=== PATIENT | female | born 1975 | race American Indian/Alaskan Native ===

== ENCOUNTER → 2020-05-01 13:39 | Outpatient (CLI) | payer OTHER, SELFPAY ==
--- NOTE | 2020-05-01 | DI.US.S_ITS ---
PROCEDURE: US PELVIC COMPLETE INDICATIONS: PELVIC PAIN TECHNIQUE: Real-time scanning was performed of the pelvic organs, with image documentation. Additional endovaginal scanning was necessary due to incomplete visualization of the adnexal and endometrial structures by transabdominal scanning. COMPARISON: None. FINDINGS: Transabdominal scanning: Limited scanning through the kidneys shows no hydronephrosis. No pathologic free abdominal or pelvic fluid. Endovaginal scanning: Uterus: Uterus is normal in size at 8.5 x 5.9 x 6.3 cm. The endometrium measures 9.8 mm in combined thickness. There is a 2.7 x 2.9 x 2.6 cm left anterior intramural uterine fibroid. There is a 2.5 x 2.5 x 2.6 cm right anterior intramural fibroid. There is a 1.6 x 1.5 x 2.2 cm mid subserosal uterine fibroid. Ovaries: Right ovary measures 3.3 x 1.4 x 1.4 cm. Right ovary is sonographically normal. Left ovary measures 3.7 x 2.9 x 3.1 cm. There is a 2.2 x 1.8 x 2.9 cm complex left adnexal cyst. IMPRESSION: 1. Uterine fibroids. 2. 2.2 x 1.8 x 2.9 cm complex left adnexal cyst which may represent progressing follicle, however lesion has nonspecific imaging characteristics and followup pelvic ultrasound in 6-12 weeks is recommended to ensure resolution of the study and to exclude early neoplastic process. Dictated by: Jazlyn Chung MD, PhD on 05/01/2020 at 15:20 Approved by: Jazlyn Chung MD, PhD on 05/01/2020 at 15:41
== END ==
PROVIDERS: PCP Family Medicine; Referring Provider Family Medicine; Visit Provider Family Medicine
DX: R10.2 Pelvic and perineal pain (principal); D25.1 Intramural leiomyoma of uterus; D25.2 Subserosal leiomyoma of uterus; N83.292 Other ovarian cyst, left side
CPT/HCPCS: 76830; 76856

== ENCOUNTER → 2020-05-02 12:54 | Outpatient (CLI) | payer OTHER, SELFPAY ==
--- NOTE | 2020-05-02 13:16 | DI.CT.S_ITS ---
PROCEDURE: CT ABDOMEN PELVIS W CON INDICATIONS: abdominal and pelvic pain TECHNIQUE: After the administration of oral and intravenous contrast, 5 mm thick sections acquired from the diaphragms to the symphysis. 5 mm thick coronal and sagittal reformats were performed. For radiation dose reduction, the following was used: automated exposure control, adjustment of mA and/or kV according to patient size. COMPARISON: None. FINDINGS: Image quality: Diagnostic. ABDOMEN: Lung bases: Lung bases are clear. Heart size is normal. Solid organs: Liver is normal in size and enhancement. Gallbladder is decompressed and demonstrates wall thickening. Biliary system is non-dilated. Pancreas enhances normally. Spleen is normal in size and enhancement. No adrenal nodules. Kidneys are normal in size and enhancement, without hydronephrosis. There is a nonobstructing inferior right renal calculus. Peritoneum and bowel: Postoperative changes of the stomach are present suggesting prior gastric bypass. Proximal distal small bowel anastomosis is evident. There is a focally prominent small bowel loop identified just beyond the proximal small bowel anastomosis that measures up to 3.7 cm. Otherwise, the remainder of the small bowel loops are nondilated. Minimal distal colonic diverticulosis appears to be present. However, there is no evidence to suggest acute diverticulitis. Appendix is not definitely identified. Nodes and vessels: No retroperitoneal or mesenteric adenopathy. Aorta and inferior vena cava are normal in caliber. Bones: No acute fracture or suspicious osseous lesion is identified. There are mild to moderate degenerative changes of the imaged spine. PELVIS: Genitourinary: Bladder wall thickness is normal. The uterus and ovaries are not adequately evaluated on CT. However, the uterus is prominent in size and appears to contain multiple uterine fibroids. The left ovary may be mildly enlarged related to complex ovarian cyst. The right ovary is not enlarged. Tubal ligation clips are present. Miscellaneous: No inguinal hernias or adenopathy. Bones: No suspicious bony lesions. No acute pelvic fractures are evident. There mild degenerative changes of the pelvic joints. IMPRESSION: 1. No definite acute abnormality within the abdomen or pelvis. 2. Prior gastric bypass. Focally dilated small bowel loop in the proximal small bowel anastomosis probably is within normal limits. There is no convincing evidence of a bowel obstruction. 3. Nonobstructing inferior right renal calculus. No hydronephrosis or ureteral calculi. 4. Wall prominence of the gallbladder probably is exaggerated by incomplete distention. Please correlate clinically to exclude the possibility of cholecystitis. Dictated by: Sabas Polk M.D. on 05/02/2020 at 13:06 Approved by: Sabas Polk M.D. on 05/02/2020 at 13:11
== END ==
PROVIDERS: PCP Family Medicine; Referring Provider Family Medicine; Visit Provider Family Medicine
DX: R10.2 Pelvic and perineal pain (principal); R10.9 Unspecified abdominal pain; Z98.84 Bariatric surgery status; N20.0 Calculus of kidney
CPT/HCPCS: 74177; Q9967

== ENCOUNTER → 2020-08-07 09:51 | Outpatient (CLI) | payer OTHER, SELFPAY ==
[2020-08-09 17:23] LABS: COVID19 Sendout Not Detected (Not Detect)
== END ==
PROVIDERS: PCP Family Medicine; Visit Provider Nurse Practitioner
DX: Z11.59 Encounter for screening for other viral diseases (principal)
CPT/HCPCS: 87635

== ENCOUNTER 2020-08-10 08:18 | Day surgery (SDC) | payer OTHER, SELFPAY ==
[2020-08-07 12:18] VITALS: BMI 33.5
[2020-08-10] VITALS (16 sets, daily range): BP systolic 124–167; BP diastolic 68–82; PULSE 49–82; RESP 10–159; TEMP 36.2–37.1; O2SAT 97–100; BMI 32.2
--- NOTE | 2020-08-10 | PATH_ITS ---
[facility] Accession Number: [id number] . 01 Material submitted: . UTERUS/FALLOPIAN TUBES - UTERUS AND BILATERAL FALLOPIAN TUBES . 01 Diagnosis: Uterus and Bilatral Fallopian Tubes, Hysterectomy and Bilateral Salpingectomy: Mixed proliferative and secretory endometrium; no atypical hyperplasia. Benign leiomyomata. Complete cross-sections of bilateral fallopian tubes with benign paratubal cysts. No malignancy. [facility] 08/14/2020 1237 Local . 01 Electronically signed: . Marlene Loyola MD, Pathologist NPI- [id number] . 01 Gross description: . Received in formalin, labeled uterus and bilateral fallopian tubes, and consists of a 115-gram fragmented uterus measuring 10.0 x 9.5 x 4.0 cm in aggregate. The serosa is reyna-pink and smooth. An ectocervix is not identified. The endometrium is reyna-pink hemorrhagic and measures 0.1 cm in thickness. The myometrium is reyna-pink and trabeculated. There are multiple reyna-white whorled leiomyomata fragments, the largest measuring 3.0 cm. No areas of hemorrhage, necrosis, or cystic degeneration are identified. There are two previously ligated fallopian tubes measuring 5.0 cm in length by 0.3 cm in diameter and 6.6 cm in length by 0.5 cm in diameter. The serosa is reyna-pink to pink-purple and smooth with fibrinous adhesions and multiple paratubal cysts ranging from 0.1 to 1.2 cm. Sectioning reveals a pinpoint to stellate lumen measuring up 0.2 cm in diameter. Vector Control Specialist sections are submitted. . A1-A2: endomyometrium, serosa and leiomyomata. A3-A5: patient access representative leiomyomata. A6-A7: patient access representative fallopian tubes with bisected fimbria and central cross-sections. ([id number]) /MRV 08/11/2020 1343 Local . 01 Pathologist provided ICD-10: N92.0, D25.0, D25.1 . 01 CPT . 663811 [facility]formed [facility]: [facility] [address] [place] [address], [place], [place] [id number] MD Shane Allen MD Phone: [phone]
[2020-08-10] MEDS: ACETAMINOPHEN 325 MG TABLET 975 MG PO (08:48)
[2020-08-10] MEDS: LACTATED RINGERS 1,000 ML 100 ML IV ×3 (08:49→12:28)
--- NOTE | 2020-08-10 09:00 | PM.PREOP ---
Pre-operative Note COVID-19 COVID-19 status: Negative Result date/Date tested (Pos, Neg/Pending): 08/07/20 Interval Note History & Physical reviewed/Exam performed by Physician: Yes Changes to H&P: No
[2020-08-10] MEDS: CEFAZOLIN 2 GM/100 ML FROZ.PIGGY IV (09:22)
--- NOTE | 2020-08-10 09:50 | SUR.OPER ---
Lithotomy on padded OR bed. [place] Pad Positioner under torso. Head on pillow, arms padded and tucked at sides. Legs secured in padded yellow fins stirrups.
[2020-08-10] MEDS: BUPIVACAINE 0.5% W/ EPI (PF) 30 ML VIAL INJ (09:59)
[2020-08-10] MEDS: ROPIVACAINE 0.2% PF 2 MG/ML 10ML AMP 20 ML INJ (10:01)
--- NOTE | 2020-08-10 11:02 | PM.OP.1 ---
Operative Date/Time/Diagnoses Date of procedure: 08/10/20 Time of procedure: 11:02 Pre-op diagnosis: Menorrhagia Post-op diagnosis: same Procedure & Clinicians Procedure: Laparoscopic supracervical hysterectomy with bilateral salpingectomy Same procedure as scheduled: Yes Indications: Menorrhagia with fibroids on ultrasound Surgeon: Ana Cristina Chilel Operations Coordinator: Aliyah Reyes Click Yes if Unassisted: No Anesthesia Type: General Operative Notes Findings: Normal ovaries, bilateral Filshie clip tubal ligation, fibroid uterus. Minimal adhesions in the pelvis, normal liver edge, normal appearing appendix and bowel surface. Closure Type: primary Specimen(s): other (Uterus above the level of the bladder and bilateral fallopian tubes) Estimated Blood Loss (mL): 50 Blood products transfused: none Procedure in detail: Patient is brought to the operating room where she underwent general anesthesia and placed in low yellowfin stirrups. She was prepped and draped in the usual sterile fashion. A check list was reviewed with the staff in the room prior to beginning of the case. Patient had pulsatile stockings in place and functional. 2 g of Ancef were in prior to beginning of the case.. A Castro catheter was placed. A single-tooth tenaculum was placed on the anterior lip of the cervix and the cervix dilated to a #6 Hegar dilator. The uterine manipulator was placed through the cervix into the uterus with the balloon inflated with 3 mL of air. The area of the umbilical incision and the 5 mm right and left lower quadrant incisions were injected with Marcaine. An incision was made with scalpel. There was some difficulty with the excessive tissue placing the varies needle so the umbilical incision was widened and carried down to the fascial layer which was held to allow the varies needle to be placed. The verries needle was placed into the abdomen and confirmed in the appropriate place with withdrawal on a syringe and then free flow of fluid down through the needle. The abdomen was insufflated with CO2. The needle was removed and a 5 mm trocar placed without difficulty. There did not appear to be any damage is placement of the trocar. The right and left lower quadrant incisions were made with the scalpel and the trochars placed without damage to internal structures. The PK forceps were used to cauterize along the mesosalpinx followed by the round ligaments on both sides. The utero-ovarian ligaments were cauterized and cut Sequential bites were taken down the broad ligaments. The uterine arteries were cauterized. An incision was made above the level bladder pushing the bladder away from the cervix. The RHETT loop was placed around the uterus and the uterus was amputated above the level of the bladder. Bleeding was controlled with the PK forceps. The PK forceps were used to cauterize in the endocervical canal. A supracervical incision was made and an 12 mm port placed. A 12 mm Endo Catch bag was placed in the abdomen. The uterus and tubes were placed in the bag and brought up through the suprapubic port site. The Curtis O was placed. The uterus was hand morselized. The abdomen was reinsufflated and adequate hemostasis was noted. Ropivacaine was placed over the cervical stump. The trochars were removed and the CO2 allowed escape from the abdomen. The fascia layer of the suprapubic site was repaired with 0 Polysorb suture. Skin was closed with 4-0 Monocryl suture at the suprapubic site and the other 3 sites. The patient went to recovery room in good condition. Counts of instruments and sponges were correct. Complications: none Post-operative Condition: stable Disposition: Acute Care (Observation) Plan for aftercare: Routine post laparoscopic hysterectomy
[2020-08-10] MEDS: KETOROLAC 30 MG/ML VIAL IV (11:45)
[2020-08-10] MEDS: OXYCODONE/ACETAMINOPHEN 5/325 TABLET 2 TAB PO ×3 (13:11→22:02)
[2020-08-10] MEDS: ONDANSETRON 4 MG/2 ML INJ IV ×2 (13:13→18:52)
--- NOTE | 2020-08-10 13:44 | PC.ADMIT ---
[email or web address] [facility] Admission Note: Safe hand off from PACU, patient arrived via portable bed to the floor at 1215. Patient having abdominal discomfort and rates pain 8/10. 30 mg toradol given w/ little relief. Patient given 10 mg percocet and 4mg Zofran given. Patient was has small ammt. of nausea after eating lunch. at 13:15, and now is comfortably resting. Patient has 4 lap sites w/ band aids, clean/dry and intact. Bowel tones active in all 4 quadrants. CMS is intact, no complaints of numbness or tingling. Patient educated about the use of call light, it's within reach, bed alarm is active, bed is low and locked. The patient,Kiah Montalvo,44 y/o, was given written information regarding hospital policies, unit procedures and contact persons. Patient's smoking status: Former smoker. Vital Signs - 8 hr 08/10/20 08:36 08/10/20 10:58 08/10/20 11:03 Temperature 97.7 F 97.2 F L Pulse Rate 72 50 L 49 L Respiratory Rate 16 14 14 Blood Pressure 134/68 157/70 H 162/68 H Pulse Oximetry 99 98 98 08/10/20 11:08 08/10/20 11:13 08/10/20 11:17 Temperature 97.8 F Pulse Rate 57 L 59 L 62 Respiratory Rate 159 H 10 L 15 Blood Pressure 160/73 H 159/74 H 145/72 H Pulse Oximetry 98 98 99 08/10/20 11:25 08/10/20 11:55 Temperature 97.1 F L 97.4 F L Pulse Rate 63 54 L Respiratory Rate 15 15 Blood Pressure 160/76 H 162/77 H Pulse Oximetry 100 100
[2020-08-10] MEDS: DOCUSATE 250 MG CAPSULE PO (22:03)
[2020-08-11] MEDS: ONDANSETRON 4 MG/2 ML INJ IV (00:42)
[2020-08-11] MEDS: OXYCODONE/ACETAMINOPHEN 5/325 TABLET 2 TAB PO ×3 (00:46→11:10)
--- NOTE | 2020-08-11 04:59 | PC.NURSE ---
Addendum entered by Melissa Murguia R.N. 08/11/20 06:15: Patient up to restroom, voiding, passing flatus. Reports pain 05/03. PRN Percocet given, patient requests only 1 tab. Will monitor for N/V. Patient denies further needs at this time. Call light in reach, belongings in reach. Original Note: Assumed care of patient at 0300. Patient is resting with eyes closed, breathing unlabored. Saline locked. Bed alarm on. Belongins in reach. Will continue to monitor.
[2020-08-11 05:00] VITALS: BP 125/68; PULSE 75; RESP 18; TEMP 37.5; O2SAT 100
--- NOTE | 2020-08-11 07:42 | PM.DS.1 ---
History of Present Illness History of Present Illness Date Patient Seen: 08/11/20 Time Patient Seen: 07:43 Chief complaint: OPB Narrative: Patient underwent a laparoscopic supracervical hysterectomy with bilateral salpingectomies on 08/10/2020 for menorrhagia Discharge Providers Provider Discharge Date: 08/11/20 Primary care physician: Natalia Carolina MD Discharge provider: Ana Cristina Chilel MD Summary Hospital Course Discharge Diagnosis: Menorrhagia status post laparoscopic supracervical hysterectomy Hospital Course: Patient underwent a laparoscopic supracervical hysterectomy with bilateral salpingectomies for menorrhagia on 08/10/2020. Patient is ambulatory, tolerating regular diet, minimal nausea, passing gas, urinating well. Pain is controlled. Status at Discharge Cognitive/behavioral status at discharge: oriented Functional status at discharge: independent ambulation Overall status at discharge: patient is progressing back to baseline Time Spent with Patient Time spent: Less than 30 minutes Exam Vital Signs (past 8 hours): - 08/11/20 05:00 Temperature 99.5 F Pulse Rate 75 Respiratory Rate 18 Blood Pressure 125/68 Pulse Oximetry 100 Oxygen Delivery Method Room Air Oxygen Flow Rate 0 Narrative Exam Narrative: Abdomen is soft, with minimal tenderness. Incisions are clean, dry, intact. Extremities without edema and nontender. Discharge Assessment & Plan Assessment and Plan Assessment: Postop laparoscopic supracervical hysterectomy doing well Plan of Treatment: Discharge home to be followed up in 1 week routine precautions reviewed with the patient. Patient already has her pain medicine prescription but is requesting nausea medicines sent to her pharmacy. Discharge Plan Discharge Plan Patient Disposition: Home Discharge Med Rec/Prescriptions Prescriptions: New ondansetron 4 mg tablet,disintegrating 4 mg PO Q6H PRN (Reason: nausea and vomiting) Qty: 10 RF: 0 Continued escitalopram oxalate [Lexapro] 20 mg tablet 20 mg PO DAILY RF: 0 cyanocobalamin (vitamin B-12) 1,000 mcg/mL solution 100 mcg IM QMONTH RF: 0 oxycodone-acetaminophen [Percocet] 5-325 mg tablet 2 tab PO Q4-6H PRN (Reason: pain) Qty: 30 RF: 0 ferrous sulfate [Iron (ferrous sulfate)] 325 mg (65 mg iron) Tablet 65 mg PO DAILY RF: 0 Follow up/Referrals: Ana Cristina Chilel MD [Physician] - 1 Week (postop exam) Discharge Orders: Discharge (Order); Ordered 08/11/20 Ordered By: Ana Cristina Chilel Provider Discharge Instructions Diet: Regular Activity: Nothing in vagina for 1 week Skin/Wound/Dressing Care Report to your healthcare provider any signs of infection, such as:: chills, fever, increased pain and unusual redness Visit Report/Discharge Packet Instructions: DI for Hysterectomy, DI for Laparoscopy Discharge Data Primary Care Provider: Natalia Carolina Attending Provider: Ana Cristina Chilel Quality VTE Deep Vein Thrombosis/Pulmonary Embolism Present on Admission: No
[2020-08-11 08:12] VITALS: BP 140/80; PULSE 59; RESP 16; TEMP 37.1; O2SAT 99
[2020-08-11] MEDS: DOCUSATE 250 MG CAPSULE PO (08:32)
[2020-08-11] MEDS: ESCITALOPRAM 10 MG TABLET 20 MG PO (08:32)
--- NOTE | 2020-08-11 10:50 | PC.NURSE ---
Assess- Patient is going to discharge at 1100am. She has 3 bandaide lap sites that are cdi, and then 1 lower incision below navel that is open to air with steri strips present with some bloody drainage that is dried. She has no bleeding from vagina and is independent in the room. Denies pain at this time.
== END 2020-08-11 11:54 | disposition home or self-care (01) ==
LOC: OR 08:19 → AC 08:19
PROVIDERS: PCP Family Medicine; Referring Provider Specialist; Visit Provider Specialist
PROC: 0UT94ZL Resection of Uterus, Supracervical, Percutaneous Endoscopic Approach (ICD-10-PCS; CPT 58542; principal; 2020-08-10 09:45)
DX: D25.0 Submucous leiomyoma of uterus (principal); N73.6 Female pelvic peritoneal adhesions (postinfective); N83.8 Other noninflammatory disorders of ovary, fallopian tube and broad ligament
CPT/HCPCS: 58542; J0690; J1100; J1885; J2250; J2405; J2704; J2795; J3010

== ENCOUNTER → 2021-05-02 10:47 | Outpatient (CLI) | payer OTHER, SELFPAY ==
[2020-08-10 11:54] VITALS: BMI 32.2
--- NOTE | 2021-05-02 | DI.RAD.S_ITS ---
PROCEDURE: XR WRIST RT MIN 3V INDICATIONS: RIGHT HAND /WRIST NUMBNESS TECHNIQUE: For views of the wrist were acquired. COMPARISON: None. FINDINGS: Bones: No acute fractures or dislocations. No suspicious bony lesions. There is an abnormal morphology of the distal ulna, where a either a congenital variant large assess Ree ossicle is present versus nonunion fracture from the past with hyperostosis. The structure superimposed on the expected position of the ulnar-styloid process is approximately 1.8 cm transverse and 1.0 cm longitudinal.. Scaphoid view: No trauma to the scaphoid is found. Soft tissues: No suspicious soft tissue calcifications. IMPRESSION: Unusual osseous structure superimposed on the expected position of the ulnar-styloid process. As discussed above this could represent a congenital morphologic anomaly or even possibly a result of prior trauma with nonunion. No definite acute disease is found. Dictated by: Tay Dias M.D. on 05/02/2021 at 11:20 Approved by: Tay Dias M.D. on 05/02/2021 at 11:22
== END ==
LOC: RAD 10:49
PROVIDERS: PCP Family Medicine; Referring Provider Family Medicine; Visit Provider Family Medicine
DX: R20.0 Anesthesia of skin (principal)
CPT/HCPCS: 73110

== ENCOUNTER → 2021-05-10 12:00 | Outpatient (CLI) | payer OTHER, SELFPAY ==
[2020-08-10 11:54] VITALS: BMI 32.2
== END ==
LOC: PHYS 12:01
PROVIDERS: PCP Family Medicine; Referring Provider Family Medicine; Visit Provider Family Medicine
DX: G56.00 Carpal tunnel syndrome, unspecified upper limb (principal)
CPT/HCPCS: 95886; 95912

== ENCOUNTER → 2021-06-07 11:47 | Outpatient (CLI) | payer OTHER, SELFPAY ==
[2020-08-10 11:54] VITALS: BMI 32.2
--- NOTE | 2021-06-07 11:48 | DI.US.S_ITS ---
PROCEDURE: US THYROID INDICATIONS: HISTORY RIGHT THYROIDECTOMY; POSSIBLE LEFT THYROID NODULES TECHNIQUE: Real-time scanning was performed of the thyroid gland, with image documentation. COMPARISON: None. FINDINGS: Right: Surgically absent. No discrete nodule or mass lesion demonstrated within the right thyroid bed. Left: The left lobe measures 5.4 x 1.5 x 2.2 cm and appears mildly heterogeneous. Nodule number: 1 Location: Inferior left lobe. Size: 1.0 x 0.8 x 1.5 cm. Composition: Solid Echogenicity: Isoechoic Shape: wider than tall. Margins: Smooth Echogenic foci: None. Total points: 3 ACR TI-RADS category: 3-mildly suspicious. Nodule number: 2 Location: Inferior to mid left lobe. Size: 0.7 x 0.3 x 0.4 cm. Composition: Cystic Echogenicity: Markedly hypoechoic Shape: wider than tall. Margins: Smooth Echogenic foci: Punctate small foci along the margins. Total points: 3 ACR TI-RADS category: 3-mildly suspicious. IMPRESSION: 1. Small mildly suspicious nodules in the inferior left lobe. Further evaluation may be obtained in 12 months to demonstrate stability if clinically indicated. 2. Surgical absence of the right lobe without a discrete soft tissue nodule or mass in the right thyroid lobe. ACR TI-RADS definitions and recommendations: TI-RADS 1 (benign): 0 points. FNA not needed. TI-RADS 2 (not suspicious): 2 points. FNA not needed. TI-RADS 3 (mildly suspicious): 3 points. * FNA if 2.5 cm or larger, follow up if 1.5 cm or larger (at 1, 3, and 5 years). TI-RADS 4 (moderately suspicious): 4-6 points. * FNA if 1.5 cm or larger, follow up if 1 cm or larger (at 1, 2, 3, and 5 years). TI-RADS 5 (highly suspicious): 7 points or more. * FNA if 1 cm or larger, follow up if 0.5 cm or larger (every year for 5 years). Dictated by: Shane Portillo M.D. on 06/07/2021 at 17:08 Approved by: Shane Portillo M.D. on 06/07/2021 at 17:13
== END ==
PROVIDERS: PCP Family Medicine; Referring Provider Family Medicine; Visit Provider Family Medicine
DX: E04.2 Nontoxic multinodular goiter (principal); E89.0 Postprocedural hypothyroidism
CPT/HCPCS: 76536

== ENCOUNTER 2021-11-04 13:56 | Emergency (ER) | payer OTHER, SELFPAY ==
[2020-08-10 11:54] VITALS: BMI 32.2
[2021-11-04 14:18] VITALS: BP 203/84; PULSE 63; RESP 16; TEMP 37; O2SAT 100; BMI 33.5
[2021-11-04 15:01] VITALS: BP 209/95; PULSE 58; O2SAT 100
[2021-11-04] MEDS: FLUORESCEIN 1 MG STRIP EYE-LEFT (15:18)
[2021-11-04] MEDS: PROPARACAINE 0.5% OPHTH SOL 1 DROPS EYE-RIGHT (15:21)
[2021-11-04] MEDS: GENTAMICIN 1 APPLIC EYE-RIGHT (15:30)
[2021-11-04] MEDS: OXYCODONE/ACETAMINOPHEN 5/325 TABLET 1 TAB PO (15:31)
[2021-11-04 15:32] VITALS: BP 188/95; PULSE 56
[2021-11-04] MEDS: cloNIDine 0.1 MG TABLET PO (15:32)
[2021-11-04 15:38] VITALS: BP 188/83; PULSE 56; RESP 18; O2SAT 100
[2021-11-04] MEDS: FLUORESCEIN 1 MG STRIP (16:14)
[2021-11-04 16:22] VITALS: BP 167/74; PULSE 62; RESP 17; O2SAT 99
--- NOTE | 2021-11-04 20:38 | ED.EYEPROB ---
HPI - Eye Problem <KARLA Ahn - Last Filed: 11/04/21 20:47> General Chief complaint: Eye Problems Stated complaint: Thinks she scratched right eyeball Time Seen by Provider: 11/04/21 15:06 Mode of arrival: Ambulatory History of Present Illness HPI Narrative: 45-year-old female presents to the emergency department with right eye pain and burning she reports that started last night and she was turned put in her contacts. She denies feeling like there is anything in her eye but she does endorse pain and burning of her right eye with tearing. She does have mild edema of her upper eyelid, has had a mild amount of clear or white discharge from her right thigh. Patient reports she threw her contacts away after she was unable to tolerate them. And decided to come to the emergency department for an evaluation. She thought maybe her cat could have scratched her eye the day before, but she does not have a scratch on her eye and she does not remember a injury causing pain before this. Related Data Patient tetanus UTD: Yes Home Medications Medication Instructions Recorded Confirmed cyanocobalamin (vitamin B-12) 100 mcg IM QMONTH 06/08/20 08/23/20 1,000 mcg/mL injection solution escitalopram oxalate 20 mg tablet 20 mg PO DAILY 06/08/20 08/23/20 (Lexapro) ferrous sulfate 325 mg (65 mg 65 mg PO DAILY 08/10/20 08/23/20 iron) tablet (Iron (ferrous sulfate)) Previous Rx's Medication Instructions Recorded oxycodone-acetaminophen 5 mg-325 2 tab PO Q4-6H PRN #30 tab 07/26/20 mg tablet (Percocet) ondansetron 4 mg disintegrating 4 mg PO Q6H PRN #10 tab 08/11/20 tablet hydrocodone 5 mg-acetaminophen 325 1 tab PO Q6HR PRN #10 tab 11/04/21 mg tablet Allergies Allergy/AdvReac Type Severity Reaction Status Date / Time Sulfa (Sulfonamide AdvReac Vomiting Verified 11/04/21 14:24 Antibiotics) Review of Systems <KARLA Ahn - Last Filed: 11/04/21 20:47> Review of Systems Narrative: General: denies fever, chills Head/Neck: denies headache, neck pain Eyes: denies visual changes, endorses right eye pain, tearing, and swelling of her upper eyelid Cardio: denies chest pain, palpitations Respiratory: denies shortness of breath, cough GI: denies abdominal pain, nausea, vomiting, or diarrhea : denies dysuria, hematuria MSK: denies joint pain, muscle weakness Skin: denies rash, itching Neuro: denies numbness, tingling Patient History <KARLA Ahn - Last Filed: 11/04/21 20:47> Medical History Anemia Menorrhagia Uterine fibroid Surgical History Hx of bariatric surgery (2016) Hx of tubal ligation Social History household members: significant other Smoking Status: Former smoker alcohol intake: current Smoking Status: Former smoker alcohol intake frequency: holidays/special occasions only Substance Use Type: marijuana Exam <KARLA Ahn - Last Filed: 11/04/21 20:47> Narrative Exam Narrative: Independently reviewed vitals signs and nursing notes. General: Awake, alert, nontoxic, no cardiorespiratory distress Head/Neck: Atraumatic, neck full range of motion Eyes: EOMI, conjunctiva normal on left, conjunctivae is injected on the right, right eye with white discharge, fluorescein exam did not show any corneal abrasion, upper eyelid is edematous does not appear to have any signs of preseptal cellulitis. Nose: nares patent, no rhinorrhea Mouth/Throat: moist mucus membranes, posterior pharynx normal, no oral lesions Cardio: Regular rate and rhythm, no peripheral edema Respiratory: respirations unlabored without wheezing, stridor, or rales. No retractions. GI: Abdomen soft, nontender MSK: Moves all extremities, neurovascularly intact Skin: Normal capillary refill, no rash Neuro: Normal speech and cognition, normal gait Initial Vital Signs Initial Vital Signs: Vital Signs Temperature 98.6 F 11/04/21 14:18 Pulse Rate 63 11/04/21 14:18 Respiratory Rate 16 11/04/21 14:18 Blood Pressure 203/84 H 11/04/21 14:18 Pulse Oximetry 100 11/04/21 14:18 Course <KARLA Ahn - Last Filed: 11/04/21 20:47> Orders Ordered: Discontinued Medications Clonidine HCl (Clonidine 0.1 Mg Tablet) 0.1 mg PO NOW ONE Stop: 11/04/21 15:25 Last Admin: 11/04/21 15:32 Dose: 0.1 mg Documented by: SOHA Fluorescein Sodium (Fluorescein 1 Mg Strip) 1 mg EYE-LEFT NOW ONE Stop: 11/04/21 15:15 Last Admin: 11/04/21 15:18 Dose: 1 mg Documented by: SOHA Fluorescein Sodium (Fluorescein 1 Mg Strip) 1 mg EYE-RIGHT NOW ONE Stop: 11/04/21 15:54 Last Admin: 11/04/21 16:14 Dose: Not Given Documented by: SOHA Gentamicin Sulfate (Gentamicin 3.5 Gm Ophth Oint) 1 applic EYE-RIGHT NOW ONE Stop: 11/04/21 15:26 Last Admin: 11/04/21 15:30 Dose: 1 applic Documented by: SOHA Oxycodone/Acetaminophen (Oxycodone/Acetaminophen 5/325 Tablet) 1 tab PO NOW ONE Stop: 11/04/21 15:25 Last Admin: 11/04/21 15:31 Dose: 1 tab Documented by: SOHA Proparacaine HCl (Proparacaine 0.5% Ophth Nora) 1 drops EYE-RIGHT NOW ONE Stop: 11/04/21 15:20 Last Admin: 11/04/21 15:21 Dose: 1 drop Documented by: SOHA Vital Signs Vital signs: Vital Signs - 8 hr 11/04/21 14:18 11/04/21 15:01 11/04/21 15:32 Temperature 98.6 F Pulse Rate 63 58 L 56 L Respiratory Rate 16 Blood Pressure 203/84 H 209/95 H 188/95 H Pulse Oximetry 100 100 11/04/21 15:38 11/04/21 16:22 Temperature Pulse Rate 56 L 62 Respiratory Rate 18 17 Blood Pressure 188/83 H 167/74 H Pulse Oximetry 100 99 MDM - Eye Problem <KARLA Ahn - Last Filed: 11/04/21 20:47> MDM Narrative Medical decision making narrative: 45-year-old female presents to the emergency department with complaint of right eye pain and burning sensation which started last night. Patient is a contact wearer, she did not have a corneal abrasion on fluorescein exam, EOMs intact. This looks most like bacterial conjunctivitis without preseptal or postseptal cellulitis. Patient also presented with hypertension as she reports she was unable to take her clonidine this morning because she forgot because of her eye pain. She was given her usual dose, and his blood pressure came down to normal limits. She was given Percocet for pain while in the emergency department, as well as proparacaine drops for exam, I applied her 1st dose of gentamicin ointment to her right eye, she will use this for the next 5 days. She has an educational psychology teacher whom she was referred to, and she understands to follow-up in the next 24-48 hours with her. Differential includes pre or postseptal cellulitis, she does not have any signs of systemic infection at this time or any facial swelling. Differential also includes corneal abrasion which was not visualized, foreign body, also not visualized. Patient is appropriate and amenable to discharge home. Vital signs are stable on repeat examination is unremarkable. Patient has been informed of results. Patient has been given strict return to ER precautions for any new or worsening symptoms. Patient understands to follow up closely with outpatient providers as instructed. Patient understands plan and agrees to discharge home. All questions and concerns answered at this time. Discharge Plan Departure Patient Disposition: Home Clinical Impression: Bacterial conjunctivitis Instructions: DI for Conjunctivitis Activity Restrictions/Additional Instructions: *You have been diagnosed with bacterial conjunctivitis of the right eye. Thank you for throwing your contacts away, please avoid contacts for the next week. Please use this ointment 3 times a day for the next 5 days. Please also follow-up with ophthalmology in the next few days for recheck. I hope you feel better soon, I have sent some pain pills in to your pharmacy *What to do: *Please continue to take your regular medications as directed. [ x] New medication prescriptions sent to your pharmacy: [Karla Delong ] [ ] New medication written as a paper prescription [ ] No new medications given *Please follow up with your primary care provider in 2-3 days, call for an appointment. Let them know you were seen in the Emergency Department and that we ask that you be seen in follow up. We will electronically transmit a record of today's note if your PCP is in our system *If you do not have a primary care provider please contact the [facility] Resource line at [phone]. They will ask some questions about your medical history and help get you set up with a doctor in the community. *Return to Emergency Department if you should have any new, worsening or concerning symptoms, such as [fever greater than 101F, chills, worsening pain, persistent vomiting or other bothersome symptoms] Prescriptions: New hydrocodone-acetaminophen 5-325 mg tablet 1 tab PO Q6HR PRN (Reason: pain) Qty: 10 0RF No Action ondansetron 4 mg tablet,disintegrating 4 mg PO Q6H PRN (Reason: nausea and vomiting) Qty: 10 0RF escitalopram oxalate [Lexapro] 20 mg tablet 20 mg PO DAILY 0RF cyanocobalamin (vitamin B-12) 1,000 mcg/mL solution 100 mcg IM QMONTH 0RF oxycodone-acetaminophen [Percocet] 5-325 mg tablet 2 tab PO Q4-6H PRN (Reason: pain) Qty: 30 0RF Label Comments: pt will be on post op. ferrous sulfate [Iron (ferrous sulfate)] 325 mg (65 mg iron) Tablet 65 mg PO DAILY 0RF Referrals: Jo Higuera OD [Non-Staff] - 3-5 days Natalia Carolina MD [Primary Care Provider] -
== END 2021-11-04 16:22 | disposition home or self-care (01) ==
PROVIDERS: Emergency Provider Nurse Practitioner Critical Care Medicine; PCP Family Medicine
DX: H10.31 Unspecified acute conjunctivitis, right eye (principal)
CPT/HCPCS: 99283

== ENCOUNTER → 2022-04-23 13:07 | Outpatient (CLI) | payer OTHER, SELFPAY ==
[2020-08-10 11:54] VITALS: BMI 32.2
--- NOTE | 2022-04-23 | DI.RAD.S_ITS ---
PROCEDURE: XR WRIST RT 2V INDICATIONS: RIGHT WRIST/ RIGHT HAND PAIN TECHNIQUE: 2 views of the wrist were acquired. COMPARISON: [facility], , XR WRIST RT MIN 3V, 05/02/2021, 10:59. FINDINGS: Bones: No acute fractures or dislocations. Stable chronic calcification in the region of the ulnar styloid may be related to prior trauma or congenital abnormality. No suspicious bony lesions. Soft tissues: No suspicious soft tissue calcifications. IMPRESSION: No acute osseous abnormality. If clinical suspicion and/or symptoms persist, additional imaging with repeat plain films, or advanced imaging (e.g. CT, MRI) may be helpful for further assessment. Dictated by: Linus Valladares M.D. on 04/23/2022 at 16:44 Approved by: Linus Valladares M.D. on 04/23/2022 at 16:44
--- NOTE | 2022-04-23 | DI.RAD.S_ITS ---
PROCEDURE: XR HAND RT 2V INDICATIONS: RIGHT WRIST/ RIGHT HAND PAIN TECHNIQUE: 2 views of the hand acquired. COMPARISON: [facility], CR, XR WRIST RT MIN 3V, 05/02/2021, 10:59. FINDINGS: Bones: No acute fractures or dislocations. Chronic ossification in the region of the ulnar styloid is most likely related to remote prior trauma. Carpal bones are normally aligned. No suspicious bony lesions. Soft tissues: No suspicious soft tissue calcifications. IMPRESSION: No acute osseous abnormality. If clinical suspicion and/or symptoms persist, additional imaging with repeat plain films, or advanced imaging (e.g. CT, MRI) may be helpful for further assessment. Dictated by: Linus Valladares M.D. on 04/23/2022 at 16:42 Approved by: Linus Valladares M.D. on 04/23/2022 at 16:44
== END ==
PROVIDERS: PCP Family Medicine; Referring Provider Dermatology; Visit Provider Dermatology
DX: M79.641 Pain in right hand (principal)
CPT/HCPCS: 73100; 73120

== ENCOUNTER → 2022-06-05 08:08 | Outpatient (CLI) | payer OTHER, SELFPAY ==
[2020-08-10 11:54] VITALS: BMI 32.2
--- NOTE | 2022-06-05 | DI.MG.S_ITS ---
BILATERAL DIGITAL SCREENING MAMMOGRAM 3D/2D WITH CAD: 06/05/2022 CLINICAL: Routine screening. Comparison is made to exam dated: 01/02/2010 mammogram - outside location. The tissue of both breasts is heterogeneously dense. This may lower the sensitivity of mammography. Current study was also evaluated with a Computer Aided Detection (CAD) system. No significant masses, calcifications, or other findings are seen in either breast. There has been no significant interval change. IMPRESSION: NEGATIVE There is no mammographic evidence of malignancy. A 1 year screening mammogram is recommended. Based on the Tyrer Cuzick model (a risk assessment model) the patient's lifetime risk is 10.4% and her 10 year risk is 2.1%. According to the ACR, ACS, and NCCN guidelines, an annual breast MRI exam along with mammogram is recommended if the patient's lifetime risk is 20% or greater. This exam was interpreted at Station ID: [id number]. NOTE: For mammograms, a report in lay terms will be sent to the patient. Approximately 15% of breast malignancies will not be visualized mammographically. In the management of a palpable breast mass, a negative mammogram must not discourage biopsy of a clinically suspicious lesion. Electronically Signed By: Clyde Larson acr/leticia:06/05/2022 09:33:04 letter sent: Normal Exam ACR BI-RADS Category 1: Negative 3341F
== END ==
PROVIDERS: PCP Family Medicine; Referring Provider Family Medicine; Visit Provider Family Medicine
DX: Z12.31 Encounter for screening mammogram for malignant neoplasm of breast (principal)
CPT/HCPCS: 77063; 77067

== ENCOUNTER → 2022-11-01 14:38 | Outpatient (ROUT) | payer SELFPAY ==
[2020-08-10 11:54] VITALS: BMI 32.2
[2022-11-01 15:27] LABS: Influenza A - CEPHEID Flu A NEGATIVE (NEGATIVE); Influenza B - CEPHEID Flu B NEGATIVE (NEGATIVE); Respiratory Syncytial Virus Negative (Negative)
[2022-11-01 15:52] LABS: COVID-19 CEPHEID 4-PLEX PCR Negative (Negative)
== END ==
PROVIDERS: PCP Family Medicine; Visit Provider Registered Nurse
DX: Z20.822 Contact with and (suspected) exposure to COVID-19 (principal)
CPT/HCPCS: 0241U

== ENCOUNTER → 2023-06-12 17:00 | Outpatient (CLI) | payer OTHER, SELFPAY ==
[2020-08-10 11:54] VITALS: BMI 32.2
--- NOTE | 2023-06-12 17:02 | DI.MRI.S_ITS ---
PROCEDURE: MR KNEE LT WO CON INDICATIONS: Pain in left knee TECHNIQUE: Noncontrast sagittal PD fast spin echo and T2 fast spin echo with fat saturation, sagittal 3-D FLASH with fat saturation; coronal T1 spin echo and PD fast spin echo with fat saturation, and axial PD fast spin echo with fat saturation through the knee. COMPARISON: [facility], , KNEE 3V LEFT, 01/21/2008, 14:43. FINDINGS: Image quality: Excellent. Menisci: There is medial extrusion of the medial meniscus. There is linear horizontal high T2 signal intensity traversing the inner, middle, and peripheral thirds of the medial meniscal body, demonstrating superior articular surface extension, indicating horizontal tearing. Lateral meniscus demonstrates degenerative fraying of the free edge involving the posterior horn, and is otherwise within normal limits. Cruciate ligaments: The anterior and posterior cruciate ligaments appear intact. Medial structures: The medial collateral ligament appears intact. Visualized portions of the pes anserinus tendons appear normal. No abnormal bursal fluid. Lateral structures: The lateral collateral ligament demonstrates mild T2 signal elevation at the femoral origin. The long and short heads of the biceps femoris tendon appear intact. The popliteus tendon appears normal. Iliotibial band appears normal. Anterior structures: The quadriceps and patellar tendons appear intact. Lateral patellar subluxation is present. Shallow trochlear groove. Mild edema within the superolateral aspect of the infrapatellar fat pad. Bones and cartilage: No bone marrow contusions or fractures. There is moderate tricompartmental periarticular osteophyte formation. Moderate articular cartilage loss diffusely overlies the weight-bearing aspects of the medial femoral condyle and medial tibial plateau. Mild articular cartilage loss diffusely overlies the weight-bearing aspects of the lateral femoral condyle and lateral tibial plateau. Superimposed moderate articular cartilage loss overlies the posterior weight-bearing aspect of the lateral femoral condyle. Severe articular cartilage loss overlies the lateral patellar facet and lateral femoral trochlea. Joint space: There is a small knee joint effusion and a small Lira's cyst. Multiple intra-articular loose bodies, largest of which are in the lateral aspect of the suprapatellar joint space, measuring 25 mm. Normal appearing synovial plicae are incidentally noted. IMPRESSION: 1. Tricompartmental osteoarthritis with associated articular cartilage loss. 2. Findings consistent with lateral patellofemoral friction syndrome in the appropriate clinical setting. 3. Knee joint effusion, Lira's cyst, and intra-articular loose bodies. 4. Medial meniscal tearing. Degenerative fraying of the lateral meniscus. 5. Low-grade lateral collateral ligament tear. Dictated by: Camryn Downey M.D. on 06/13/2023 at 8:38 Approved by: Camryn Downey M.D. on 06/13/2023 at 8:42
== END ==
PROVIDERS: PCP Family Medicine; Referring Provider Family Medicine; Visit Provider Family Medicine
DX: S83.422A Sprain of lateral collateral ligament of left knee, initial encounter (principal); S83.242A Other tear of medial meniscus, current injury, left knee, initial encounter; M17.12 Unilateral primary osteoarthritis, left knee; M25.462 Effusion, left knee; M71.22 Synovial cyst of popliteal space [Baker], left knee; M25.562 Pain in left knee
CPT/HCPCS: 73721

== ENCOUNTER → 2023-06-13 07:54 | Outpatient (CLI) | payer OTHER, SELFPAY ==
[2020-08-10 11:54] VITALS: BMI 32.2
--- NOTE | 2023-06-13 07:58 | DI.MG.S_ITS ---
BILATERAL DIGITAL SCREENING MAMMOGRAM 3D/2D WITH CAD: 06/13/2023 CLINICAL: Routine screening. Family history of breast cancer. Comparison is made to exams dated: 06/05/2022 mammogram - [facility] and 01/02/2010 mammogram - outside location. There are scattered areas of fibroglandular density in both breasts (category b / 25%-50% glandular tissue). Current study was also evaluated with a Computer Aided Detection (CAD) system. No significant masses, calcifications, or other findings are seen in either breast. There has been no significant interval change. IMPRESSION: NEGATIVE There is no mammographic evidence of malignancy. A 1 year screening mammogram is recommended. Based on the Tyrer Cuzick model (a risk assessment model) the patient's lifetime risk is 5.9% and her 10 year risk is 1.2%. According to the ACR, ACS, and NCCN guidelines, an annual breast MRI exam along with mammogram is recommended if the patient's lifetime risk is 20% or greater. This exam was interpreted at Station ID: [id number]. NOTE: For mammograms, a report in lay terms will be sent to the patient. Approximately 15% of breast malignancies will not be visualized mammographically. In the management of a palpable breast mass, a negative mammogram must not discourage biopsy of a clinically suspicious lesion. Electronically Signed By: Linus rodriguez/leticia:06/13/2023 11:38:20 letter sent: Normal Exam ACR BI-RADS Category 1: Negative [id number]
== END ==
PROVIDERS: PCP Family Medicine; Referring Provider Family Medicine; Visit Provider Family Medicine
DX: Z12.31 Encounter for screening mammogram for malignant neoplasm of breast (principal); Z80.3 Family history of malignant neoplasm of breast
CPT/HCPCS: 77063; 77067

== ENCOUNTER → 2025-01-19 17:04 | Outpatient (CLI) | payer OTHER, SELFPAY ==
[2020-08-10 11:54] VITALS: BMI 32.2
--- NOTE | 2025-01-19 | DI.RAD.S_ITS ---
6PROCEDURE: XR KNEE RT 3V INDICATIONS: KNEE PAIN TECHNIQUE: 3 views of the knee were acquired. COMPARISON: None. FINDINGS: Bones: No fractures or dislocations. No suspicious bony lesions. Tricompartmental joint space narrowing with associated osteophytosis. Suspected bulky joint loose bodies measuring up to 2.2 cm. Soft tissues: No joint effusion. No suspicious soft tissue calcifications. IMPRESSION: [id number] tricompartmental osteoarthritis. Kellgren-Adam Grade 2. Suspected bulky joint loose bodies. Dictated by: Otilio Julian M.D. on 01/20/2025 at 17:00 Approved by: Otilio Julian M.D. on 01/20/2025 at 17:01
[2025-01-19 18:06] LABS: Add Manual Diff / Slide Review NO; Basophils Absolute Auto 0 /uL (0-100); Basophils Percent Auto 0.5 % (0-2); Eosinophils Absolute Auto 100 /uL (0-450); Eosinophils Percent Auto 0.9 % (2-4); Hematocrit 37.5 % (36-46); Hemoglobin 11.9 g/dL (12.0-16.0); Lymphocytes Absolute Auto 2800 /uL (1100-4500); Lymphocytes Percent Auto 32.3 % (25-40); Mean Corpuscular HGB Conc 31.6 % (30-36); Mean Corpuscular Hemoglobin 22.9 PG (26-34); Mean Corpuscular Volume 72.3 fL (80-100); Monocytes Absolute Auto 600 /uL (0-900); Monocytes Percent Auto 7.3 % (3-14); Neutrophils Absolute Auto 5100 /uL (1500-7000); Platelet Count 359 X10^3/uL (150-400); Red Blood Cell Count 5.19 X10^6/uL (4.0-5.2); Red Cell Distribution Width 16.6 % (11.6-14.8); White Blood Cell Count 8.7 X10^3/uL (4.5-11.0)
[2025-01-19 18:23] LABS: Iron 43 ug/dL (37-170)
[2025-01-19 18:25] LABS: BUN Creatinine Ratio 26.8 (6-22); Blood Urea Nitrogen 19 mg/dL (7-17); Calcium 9.5 mg/dL (8.4-10.2); Carbon Dioxide 30 mmol/L (22-32); Chloride 98 mmol/L (98-107); Estimated Glomerular Filt Rate > 60 mL/min (>60); Glucose 101 mg/dL (70-100); HEMOLYSIS < 15 (0-50); Potassium 4.3 mmol/L (3.4-5.1); Sodium 137 mmol/L (137-145)
[2025-01-19 18:34] LABS: Percent Iron Saturation 11 % (15-50); Total Iron Binding Capacity 382 ug/dL (265-497); Transferrin 384 mg/dL (206-381)
[2025-01-19 18:59] LABS: Ferritin 9 ng/mL (11-264)
[2025-01-19 19:13] LABS: Vitamin B12 312 pg/mL (239-931)
== END ==
PROVIDERS: PCP Family Medicine; Referring Provider Family Medicine; Visit Provider Family Medicine
DX: I10 Essential (primary) hypertension (principal); F41.8 Other specified anxiety disorders; E53.8 Deficiency of other specified B group vitamins; D50.8 Other iron deficiency anemias; M77.02 Medial epicondylitis, left elbow; M25.561 Pain in right knee; G89.29 Other chronic pain; G54.0 Brachial plexus disorders
CPT/HCPCS: 36415; 73562; 80048; 82607; 82728; 83540; 83550; 84466; 85025

== ENCOUNTER → 2025-02-22 17:15 | Outpatient (CLI) | payer OTHER, SELFPAY ==
[2020-08-10 11:54] VITALS: BMI 32.2
--- NOTE | 2025-02-22 17:17 | DI.RAD.S_ITS ---
PROCEDURE: XR FOOT RT MIN 3V INDICATIONS: R FOOT PAIN TECHNIQUE: 3 views of the foot were acquired. COMPARISON: None. FINDINGS: Bones: Pes planus noted with minimal hammertoe deformities 2nd through 5th digits. Moderate spur projecting from the anterior cortex of the talar neck and also the adjacent anterior tibial plafond predisposes to anterior impingement ankle dorsiflexion. Mild spurring from the posterior talar process and also the dorsal 1st metatarsal head seen on lateral view. Joints: The joint spaces are normal in width and alignment without arthritic change. Soft tissues: Heavy calcifications present in the Achilles and plantar tendon insertion on the calcaneus. There is moderate diffuse soft tissue swelling IMPRESSION: Moderate diffuse soft tissue swelling likely edema. Other chronic findings- as described Dictated by: Taj Valencia M.D. on 02/23/2025 at 7:19 Approved by: Taj Valencia M.D. on 02/23/2025 at 7:21
== END ==
PROVIDERS: PCP Family Medicine; Referring Provider Family Medicine; Visit Provider Family Medicine
DX: M79.671 Pain in right foot (principal); M79.89 Other specified soft tissue disorders; M21.41 Flat foot [pes planus] (acquired), right foot; M65.871 Other synovitis and tenosynovitis, right ankle and foot
CPT/HCPCS: 73630

== ENCOUNTER → 2025-04-14 18:32 | Outpatient (CLI) | payer OTHER, SELFPAY ==
[2020-08-10 11:54] VITALS: BMI 32.2
--- NOTE | 2025-04-14 18:33 | DI.MRI.S_ITS ---
PROCEDURE: MR FOOT RT WO CON INDICATIONS: RIGHT FOOT PAIN TECHNIQUE: Multiphasic, multisequence MRI of the forefoot was performed, without intravenous contrast administration. COMPARISON: [facility], CR, XR FOOT RT MIN 3V, 02/22/2025, 17:15. FINDINGS: Image quality: Excellent. Bones and joints: [id number] midfoot and forefoot joint osteoarthritic changes are seen most notably involving 1st MTP joint and articulation between 1st metatarsal head and sesamoid bones. No fracture or dislocation. No metatarsal stress fractures. No suspicious intraosseous lesions. Bipartite lateral sesamoid of 1st metatarsal head is seen. Soft tissues: The visualized plantar foot muscles demonstrate normal signal and bulk. Visualized flexor and extensor tendons appear intact, without tenosynovitis. The distal insertion of peroneus brevis tendon is intact. Thickened distal insertion of peroneus longus tendon is noted with subtle intrasubstance T2 hyperintense signal suggestive of tendinosis and low-grade partial-thickness tear. The principal Lisfranc ligament appears intact. No soft tissue ganglion cysts. Small amount of fluid within 1st through 3rd interspaces which may represent intermetatarsal bursal fluid and bursitis. Sagittal images demonstrate no evidence for plantar plate tears in 2nd through 5th toes. There is low to moderate grade partial-thickness tear involving lateral sesamoid phalangeal ligament at its proximal insertion suggestive of low-grade turf toe injury. IMPRESSION: 1. [id number] midfoot and forefoot joint osteoarthritis most notably in great toe as above. No fracture or dislocation. No metatarsal stress fractures. No suspicious bony lesions. 2. Extensor and flexor tendons are intact. No signal abnormality is seen in plantar foot muscles. 3. Tendinosis and low-grade partial-thickness tear involving distal insertion of peroneus longus tendon. 4. Small amount of fluid in 1st through 3rd interspaces, intermetatarsal bursal fluid and bursitis cannot be excluded. 5. Low-grade partial-thickness tear involving lateral sesamoid phalangeal ligament of 1st metatarsal head which may represent low-grade turf toe injury. Dictated by: Terry Cervantes M.D. on 04/17/2025 at 1:56 Approved by: Terry Cervantes M.D. on 04/17/2025 at 2:13
== END ==
LOC: MRI 18:32
PROVIDERS: PCP Family Medicine; Referring Provider Family Medicine; Visit Provider Family Medicine
DX: S86.311A Strain of muscle(s) and tendon(s) of peroneal muscle group at lower leg level, right leg, initial encounter (principal); S93.521A Sprain of metatarsophalangeal joint of right great toe, initial encounter; X58.XXXA Exposure to other specified factors, initial encounter; M19.071 Primary osteoarthritis, right ankle and foot; M79.671 Pain in right foot
CPT/HCPCS: 73718